=== PATIENT | female | born 1945 | race Caucasian/White ===

== ENCOUNTER 2022-06-20 10:54 | Emergency (ER) | payer MEDICARE ==
[~2022-06-20] VITALS: Ht 149 cm; Wt 75.0 kg
[2022-06-20 11:22] LABS: BASOPHILS # (AUTO) 0.1 10^3/uL (0.0-0.1); BASOPHILS % (AUTO) 1 % (0-10); EOSINOPHILS # (AUTO) 0.7 10^3/uL (0.0-0.3); EOSINOPHILS % (AUTO) 12 % (0-10); HEMATOCRIT 39 % (35-52); HEMOGLOBIN 13.1 g/dL (11.5-16.0); LYMPHOCYTES # (AUTO) 1.5 10^3/uL (1.0-4.0); LYMPHOCYTES % (AUTO) 24 % (12-44); MEAN CORPUSCULAR HEMOGLOBIN 32 pg (25-34); MEAN CORPUSCULAR HGB CONC 34 g/dL (32-36); MEAN CORPUSCULAR VOLUME 94 fL (80-99); MONOCYTES # (AUTO) 0.4 10^3/uL (0.0-1.0); MONOCYTES % (AUTO) 6 % (0-12); NEUTROPHILS # (AUTO) 3.5 10^3/uL (1.8-7.8); NEUTROPHILS % (AUTO) 57 % (42-75); PLATELET COUNT 107 10^3/uL (130-400); WHITE BLOOD COUNT 6.2 10^3/uL (4.3-11.0)
[2022-06-20 11:27] LABS: ALBUMIN 3.3 GM/DL (3.2-4.5); POTASSIUM 4.9 MMOL/L (3.6-5.0)
[2022-06-20 11:28] LABS: CALCIUM 8.9 MG/DL (8.5-10.1)
[2022-06-20 11:31] LABS: BILIRUBIN,TOTAL 1.1 MG/DL (0.1-1.0); FIBRIN DEGRADATION PRODUCTS 1.48 UG/ML (0.00-0.49); PROTHROMBIN TIME PATIENT 13.8 SEC (12.2-14.7)
[2022-06-20 11:33] LABS: CREATININE SERUM 1.46 MG/DL (0.60-1.30)
[2022-06-20] MEDS ORDERED: RT-ALBUTEROL HFA 8.5 GM INHALER IH ONE (11:33)
--- NOTE | 2022-06-20 11:43 | Diagnostic Imaging Report ---
PROCEDURE: CT maxillofacial without contrast. TECHNIQUE: Multiple contiguous axial images were obtained through the facial bones without the use of intravenous contrast. Auto Exposure Controls were utilized during the CT exam to meet ALARA standards for radiation dose reduction. INDICATION: Fall. Facial pain. Possible stroke. COMPARISON: None. FINDINGS: No acute fracture or dislocation is seen in the face. The mandible, zygomatic arches, and pterygoid plates are intact. The bilateral TMJs demonstrate normal alignment. No nasal bone fractures. There is leftward deviation of the nasal septum. No orbital rim fracture is seen. The paranasal sinuses are clear. No post septal inflammatory changes are seen. The globes are intact bilaterally. Bilateral lens implants are noted. The included intracranial contents demonstrate no acute abnormalities. The included upper cervical spine is unremarkable. The craniocervical junction is intact. IMPRESSION: No acute facial fractures. Dictated by: Dictated on workstation # [id number]
--- NOTE | 2022-06-20 11:43 | Diagnostic Imaging Report ---
PROCEDURE: CT head wo r/o stroke. TECHNIQUE: Multiple contiguous axial images were obtained through the brain without the use of intravenous contrast. Auto Exposure Controls were utilized during the CT exam to meet ALARA standards for radiation dose reduction. INDICATION: Neuro deficit. COMPARISON: Imaging from the same date. FINDINGS: Moderate atrophy. No intracranial hemorrhage. Focal hypodensity is identified involving the posterior left parietotemporal lobes. This involves the overlying cortex. Additional periventricular and subcortical white matter hypodensities are present, most consistent with mild background chronic small vessel white matter ischemic disease. No additional CT evidence of an acute ischemic infarction. No midline shift, herniation, hydrocephalus, or suspicious extra-axial fluid collection. The bilateral ocular lenses are absent. Mild background vascular calcifications. The paranasal sinuses are clear. The calvarium and extracalvarial soft tissues are unremarkable. IMPRESSION: Age-indeterminate infarction involving the posterior aspect of the left parietotemporal lobes. Recommend clinical correlation. If further evaluation is desired, then MRI of the brain would be recommended. Moderate atrophy with associated mild background chronic small vessel white matter ischemic disease. Dictated by: Dictated on workstation # [id number]
--- NOTE | 2022-06-20 11:44 | Diagnostic Imaging Report ---
INDICATION: Shortness of air. COMPARISON: None available. TECHNIQUE: Single radiograph of the chest dated 06/20/2022. FINDINGS: The cardiac silhouette is borderline enlarged. Central pulmonary vascular congestion is present. The lungs are clear. No pleural effusion. No pneumothorax. No acute osseous abnormality. IMPRESSION: Borderline cardiomegaly with central pulmonary vascular congestion without interstitial edema or pleural effusion. Dictated by: Dictated on workstation # [id number]
[2022-06-20] MEDS ORDERED: RT-ALBUTEROL HFA 8.5 GM INHALER IH STA (11:50)
[2022-06-20] MEDS ORDERED: NS IV 1000 ML 1,000 ML IV SCH (12:00)
[2022-06-20] MEDS ORDERED: HOLD METFORMIN - RECEIVED CONTRAST 20 ML VIAL IV SCH (12:30)
[2022-06-20] MEDS ORDERED: NS 100 ML (IVPB) BAG IV ONE (12:30)
[2022-06-20] MEDS ORDERED: IOHEXOL 350 MG/ML 100 ML (OMNIPAQUE 350) VIAL IV ONE (12:30)
[2022-06-20 12:32] LABS: ABG BASE EXCESS -0.7 MMOL/L (-2.5-2.5); ABG OXYGEN SATURATION 94 % (94-100); ABG PCO2 45 MMHG (35-45); ABG PH 7.35 (7.37-7.43); ABG PO2 65 MMHG (79-93); ABG TCO2 25.8 MMOL/L (21.0-31.0); ALLENS TEST YES-POS; INSPIRED O2 ROOM AIR; VENTILATOR NO
[2022-06-20 13:23] LABS: BILIRUBIN,URINE NEGATIVE (NEGATIVE); CLARITY,URINE CLEAR; COLOR,URINE YELLOW; GLUCOSE, URINE (UA) NEGATIVE (NEGATIVE); KETONES,URINE NEGATIVE (NEGATIVE); LEUKOCYTE ESTERASE ,URINE NEGATIVE (NEGATIVE); NITRITE,URINE NEGATIVE (NEGATIVE); PH,URINE 5.5 (5-9); PROTEIN,URINE NEGATIVE (NEGATIVE)
--- NOTE | 2022-06-20 13:28 | Diagnostic Imaging Report ---
PROCEDURE: CT angiography of the head and CT angiography of the neck with and without contrast. TECHNIQUE: Contiguous noncontrast images were obtained from the skull base through the vertex. After intravenous contrast administration, helical CT angiography of the neck was performed. Source data was reformatted into 3D MIP projections. Delayed post contrast acquisition was also obtained. Auto Exposure Controls were utilized during the CT exam to meet ALARA standards for radiation dose reduction. INDICATION: Concern for stroke. Focal neurologic deficit. Fall. COMPARISON: CT head performed this same date. FINDINGS: CTA NECK: The visualized portions of the aortic arch demonstrate atherosclerotic plaque without evidence of aneurysm or dissection. There is conventional branching pattern of the great vessels of the aorta. The brachiocephalic artery is normal in course and caliber. The right and left common carotid origins are unremarkable. The origin of the left subclavian artery is patent. The common carotid arteries and internal carotid arteries demonstrate a tortuous course. There is calcified atherosclerotic plaque in the bilateral carotid bulbs and proximal internal carotid arteries. There is 70-80% stenosis in the proximal right internal carotid artery based on NASCET criteria. Less than 50% stenosis is seen in the proximal left ICA. No evidence of dissection in the carotid systems. The external carotid arteries are patent and unremarkable. The right vertebral artery is dominant. The origin of the right vertebral artery is seen and is unremarkable. The origin of the left vertebral artery is off the aortic arch. There is no focal stenosis seen within the neck. There is no dissection. The vertebral arteries are well visualized to up to the level of the basilar artery. The osseous structures of the cervical spine are unremarkable. Included views through the lung apices demonstrate no focal consolidation. CTA BRAIN: Atherosclerotic plaque is seen in the [place] of the bilateral terminal internal carotid arteries without significant stenosis. No stenosis is seen in the bilateral anterior, middle, and posterior cerebral arteries. The right A1 segment is hypoplastic. No evidence of aneurysm the [place]. In the posterior circulation, both of the vertebral arteries demonstrate normal opacification. Both the right and left PICA arteries are identified. The basilar artery is normal in course and caliber. The terminal branch vessels including the superior cerebellar arteries unremarkable. IMPRESSION: 1. No stenosis or aneurysm in the [place]. No evidence of large vessel occlusion. 2. 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 3. No significant stenosis in the bilateral common carotid arteries, left internal carotid artery, and vertebral arteries. Dictated by: Dictated on workstation # [id number]
[2022-06-20 13:43] LABS: BACTERIA,URINE NEGATIVE /HPF
[2022-06-20] MEDS ORDERED: RT-ALBUTEROL/IPRATROPIUM 3 ML (DUONEB) VIAL INH ONE (14:45)
[2022-06-20] MEDS ORDERED: RT-BUDESONIDE NEBS 0.5 MG/2ML (PULMICORT) AMP INH STA (15:54)
[2022-06-20] MEDS ORDERED: methylPREDNISolone 125 MG (Solu-MEDROL) VIAL IVP ONE (16:00)
--- NOTE | 2022-06-20 16:17 | ED Neurological Problem ---
General Chief Complaint: Neuro-Stroke Like Symptoms Stated Complaint: POSSIBLE STROKE Nursing Triage Note: PT TO RM 2 PER W/C FAMILY STATES PT HAS SLURRED SPEECH, HAD FALLEN THIS AM AT 0430. PT HAS BRUISE ON L SIDE CHIN FROM FALL. PT HAS GENERALIZED WEAKNESS. PT HAS HAD PREVIOUS STROKE. DAUGHTER STATES FELL ASLEEP WHEN WATCHING PARADE. Source: patient, family Exam Limitations: no limitations History of Present Illness Date Seen by Provider: Jun 20, 2022 Time Seen by Provider: 11:02 Initial Comments This is 77-year-old woman presents to the emergency room accompanied by family with primary complaint of slurred speech. She appears to be dysarthric without aphasia. She also reports a fall at 0430 while getting up to go to the bathroom. No one was with her to observe her speech at that time, so the last known well time in regard to her dysarthria would be 2200 when she went to bed. When she fell she struck her face and has a bruise on the left jawline and bruising around the left eye. She denies any head pain or neck pain. Neck is nontender to palpation. She does not take any blood thinning medications except a aspirin 81 mg daily. 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 She apparently had a full recovery. Stroke activation was paged. Initial NIH was 3. She received 2 points for ataxia of the upper extremities and one-point for dysarthria. Patient is also noted to be wheezing. She has COPD and uses nebulizer treatments multiple times per day. She is in town visiting for a football game. She is from [place]. Allergies and Home Medications Allergies Coded Allergies: Penicillins (Verified Allergy, Unknown, 06/20/22) sulfamethoxazole (Verified Allergy, Unknown, 06/20/22) trimethoprim (Verified Allergy, Unknown, 06/20/22) Patient Home Medication List Home Medication List Reviewed: Yes Review of Systems Review of Systems Constitutional: no symptoms reported Eyes: No Symptoms Reported Ears, Nose, Mouth, Throat: no symptoms reported Respiratory: see HPI Cardiovascular: no symptoms reported Gastrointestinal: no symptoms reported Genitourinary: no symptoms reported : No Musculoskeletal: no symptoms reported Skin: no symptoms reported Psychiatric/Neurological: See HPI Endocrine: No Symptoms Reported Past Hngoxnn-Qhwarg-Ynxvce Hx Patient Social History Tobacco Use?: Yes Tobacco type used: Cigarettes Smoking Status: Current Someday Smoker Substance use?: No Alcohol Use?: Yes Alcohol type: Beer Alcohol Frequency: Rarely Pt feels they are or have been: No Immunizations Up To Date First/Initial COVID19 Vaccinat: 2020 Second COVID19 Vaccination Sridhar: 2020 COVID19 Vaccine Insurance Office Supervisor: DOESN'T RECALL Past Medical History Surgery/Hospitalization HX: COPD, X2, HX PREVIOUS STROKE, ARTHRITIS, HTN Surgeries: Yes Section, Tubal Ligation Respiratory: Yes COPD (Occasionally uses oxygen at night) Cardiac: Yes Hypertension Neurological: Yes Stroke : No Reproductive Disorders: No Genitourinary: No Gastrointestinal: No Musculoskeletal: No Endocrine: No HEENT: No Cancer: No Psychosocial: No Integumentary: No Physical Exam Vital Signs Vital Signs - First Documented 06/20/22 06/20/22 10:56 14:40 Temp 36.0 Pulse 67 Resp 18 B/P (MAP) 119/76 (90) Pulse Ox 94 O2 Delivery Nasal Cannula O2 Flow Rate 1.00 Capillary Refill : Less Than 3 Seconds Height, Weight, BMI Height: '" Weight: lbs. oz. kg; 33.00 BMI Method: General Appearance: WD/WN, no apparent distress HEENT: PERRL/EOMI, normal ENT inspection, other (Mucous membranes moist) Neck: normal inspection; No carotid bruit Respiratory: no respiratory distress, no accessory muscle use, wheezing Cardiovascular: regular rate, rhythm, no edema, no murmur Gastrointestinal: normal bowel sounds, non tender, soft Extremities: normal inspection, no pedal edema Neurologic/Psychiatric: alert, normal mood/affect, oriented x 3, abnormal manager process improvement II-XII (Mild dysarthria), facial droop (Questionable very subtle right droop of the mouth), motor weakness (Mild generalized weakness. Slight ataxia of the upper extremities bilaterally.) Coordination/Gait: ABN nose to finger (R) (Slight ataxia), ABN nose to finger (L) (Slight ataxia) Skin: normal color, warm/dry Stroke NIH Stroke Scale Assessment Level of Consciousness: 0=Alert (0), Level of Consciousness-Questions: 0=Answers both month/age (0), LOC Commands: 0=Performs both tasks (0), Visual [place]: 0=No visual loss (0), Facial Movement (Facial Paresis): 0=Normal symmetrical mnt (0), Motor Function-Arms Right: 0=No drift (0), Motor Fu nction-Arms Left: 0=No drift (0), Motor Function-Legs Right: 0=No drift (0), Limb Ataxia: 2=Present in two limbs (2), Sensory: 0=Normal:no loss (0), Best Language: 0=No aphasia (0), Dysarthria: 1=Mild to moderate loss (1), Extinction & Inattention: 0=No abnormality (0), Total: 3 Progress/Results/Core Measures Results/Orders Lab Results Laboratory Tests Test 06/20/22 11:07 06/20/22 11:08 06/20/22 11:35 06/20/22 12:20 Range/Units Glucometer 140 H 70-110 MG/DL White Blood Count 6.2 4.3-11.0 10^3/uL Red Blood Count 4.13 3.80-5.11 10^6/uL Hemoglobin 13.1 11.5-16.0 g/dL Hematocrit 39 35-52 % Mean Corpuscular Volume 94 80-99 fL Mean Corpuscular Hemoglobin 32 25-34 pg Mean Corpuscular Hemoglobin Concent 34 32-36 g/dL Red Cell Distribution Width 13.8 10.0-14.5 % Platelet Count 107 L 130-400 10^3/uL Mean Platelet Volume 11.0 9.0-12.2 fL Immature Granulocyte % (Auto) 0 % Neutrophils (%) (Auto) 57 42-75 % Lymphocytes (%) (Auto) 24 12-44 % Monocytes (%) (Auto) 6 0-12 % Eosinophils (%) (Auto) 12 H 0-10 % Basophils (%) (Auto) 1 0-10 % Neutrophils # (Auto) 3.5 1.8-7.8 10^3/uL Lymphocytes # (Auto) 1.5 1.0-4.0 10^3/uL Monocytes # (Auto) 0.4 0.0-1.0 10^3/uL Eosinophils # (Auto) 0.7 H 0.0-0.3 10^3/uL Basophils # (Auto) 0.1 0.0-0.1 10^3/uL Immature Granulocyte # (Auto) 0.0 0.0-0.1 10^3/uL Prothrombin Time 13.8 12.2-14.7 SEC INR Comment 1.0 0.8-1.4 Activated Partial Thromboplast Time 39 H 24-35 SEC D-Dimer 1.48 H 0.00-0.49 UG/ML Sodium Level 138 135-145 MMOL/L Potassium Level 4.9 3.6-5.0 MMOL/L Chloride Level 104 98-107 MMOL/L Carbon Dioxide Level 22 21-32 MMOL/L Anion Gap 12 5-14 MMOL/L Blood Urea Nitrogen 22 H 7-18 MG/DL Creatinine 1.46 H 0.60-1.30 MG/DL Estimat Glomerular Filtration Rate 37 BUN/Creatinine Ratio 15 Glucose Level 129 H 70-105 MG/DL Calcium Level 8.9 8.5-10.1 MG/DL Corrected Calcium 9.5 8.5-10.1 MG/DL Total Bilirubin 1.1 H 0.1-1.0 MG/DL Aspartate Amino Transf (AST/SGOT) 42 H 5-34 U/L Alanine Aminotransferase (ALT/SGPT) 27 0-55 U/L Alkaline Phosphatase 184 H 40-136 U/L Troponin I 0.028 <0.028 NG/ML Total Protein 7.0 6.4-8.2 GM/DL Albumin 3.3 3.2-4.5 GM/DL Influenza Type A (RT-PCR) Not Detected Not Detecte Influenza Type B (RT-PCR) Not Detected Not Detecte SARS-CoV-2 RNA (RT-PCR) Not Detected Not Detecte Blood Gas Puncture Site R RAD Blood Gas Patient Temperature 36.0 Arterial Blood pH 7.35 L 7.37-7.43 Arterial Blood Partial Pressure CO2 45 35-45 MMHG Arterial Blood Partial Pressure O2 65 L 79-93 MMHG Arterial Blood HCO3 24 23-27 MMOL/L Arterial Blood Total CO2 25.8 21.0-31.0 MMOL/L Arterial Blood Oxygen Saturation 94 94-100 % Arterial Blood Base Excess -0.7 -2.5-2.5 MMOL/L Fortino Test YES-POS Blood Gas Ventilator Setting NO Blood Gas Inspired Oxygen ROOM AIR Test 06/20/22 13:10 Range/Units Urine Color YELLOW Urine Clarity CLEAR Urine pH 5.5 5-9 Urine Specific [place] <=1.005 1.016-1.022 Urine Protein NEGATIVE NEGATIVE Urine Glucose (UA) NEGATIVE NEGATIVE Urine Ketones NEGATIVE NEGATIVE Urine Nitrite NEGATIVE NEGATIVE Urine Bilirubin NEGATIVE NEGATIVE Urine Urobilinogen 0.2 < = 1.0 MG/DL Urine Leukocyte Esterase NEGATIVE NEGATIVE Urine RBC (Auto) NEGATIVE NEGATIVE Urine RBC NONE /HPF Urine WBC NONE /HPF Urine Squamous Epithelial Cells NONE /HPF Urine Crystals NONE /LPF Urine Bacteria NEGATIVE /HPF Urine Casts NONE /LPF Urine Mucus NEGATIVE /LPF Urine Culture Indicated NO My Orders Orders - DAMIAN ROSE MD Cbc With Automated Diff (06/20/22 11:15) Protime With Inr (06/20/22 11:15) Partial Thromboplastin Time (06/20/22 11:15) Comprehensive Metabolic Panel (06/20/22 11:15) Fibrin Degradation Products (06/20/22 11:15) Troponin I [place] (06/20/22 11:15) Ua Culture If Indicated (06/20/22 11:15) Chest 1 View, Ap/Pa Only (06/20/22 11:15) Ekg Tracing (06/20/22 11:15) Nothing By Mouth (06/20/22 Lunch) Accucheck Stat ONCE (06/20/22 11:15) Ed Iv/Invasive Line Start (06/20/22 11:15) Ed Iv/Invasive Line Start (06/20/22 11:15) Vital Signs Stroke Patient Q15M (06/20/22 11:15) Ct Head Wo-R/O Stroke (06/20/22 11:15) O2 (06/20/22 11:15) Intake & Output 06,14,22 (06/20/22 11:15) Monitor-Rhythm Ecg Trace Only (06/20/22 11:15) Dysphagia Screening Tool Q10MX1 (06/20/22 11:15) Ct Maxillofacial Wo (06/20/22 11:16) Albuterol Inhaler (Albuterol) (06/20/22 11:33) Ns Iv 1000 Ml (Sodium Chloride 0.9%) (06/20/22 12:00) Albuterol Inhaler (Albuterol) (06/20/22 11:50) Covid 19 Inhouse Test (06/20/22 11:50) Influenza A And B By Pcr (06/20/22 11:50) Ct Angio Head/Neck (06/20/22 12:19) Arterial Blood Gas (06/20/22 12:23) Iohexol Injection (Omnipaque 350 Mg/Ml 1 (06/20/22 12:30) Received Contrast (Hold Metformin- Contr (06/20/22 12:30) Ns (Ivpb) (Sodium Chloride 0.9% Ivpb Bag (06/20/22 12:30) Albuterol/Ipra Inhalation Soln (Duoneb I (06/20/22 14:45) Svn Small Volume Nebulizer (06/20/22 14:35) Budesonide Inhalation Solution (Pulmicor (06/20/22 15:54) Svn Small Volume Nebulizer (06/20/22 15:54) Methylprednisolone Sod Succ (Solu-Medrol (06/20/22 16:00) Aspirin Tablet (Aspirin Tablet) (06/20/22 16:45) Nicotine Patch (Nicoderm Patch) (06/20/22 16:53) Medications Given in ED Vital Signs/I&O 06/20/22 06/20/22 06/20/22 06/20/22 10:56 14:40 14:56 18:26 Temp 36.0 Pulse 67 68 Resp 18 16 B/P (MAP) 119/76 (90) 109/53 Pulse Ox 94 97 98 96 O2 Delivery Nasal Cannula Nasal Cannula O2 Flow Rate 1.00 1.00 Blood Pressure Mean: 90 FSBG Bedside Testing Finger Stick Blood Glucose: 140 Blood Glucose Action Taken: REPORTED TO DR Schwab Progress Note : Time: 17:50 Progress Note Stroke activation was paged. NIH score was 3. Patient had mild ataxia of the upper extremities bilaterally and dysarthria resulting in 3 points on the NIH score. CT scan revealed CVA of unknown chronicity on the left. It is unclear if this is related to her prior CVA or is new. Patient was passed through the treatment window for thrombolytics. CT was followed by CT angiogram which showed a 70 to 80% stenosis of the right ICA. This did not seem to correlate with symptoms or with location of stroke seen on CT. I discussed the case with Dr. Chapman, stroke neurologist at [facility]. He recommended further evaluation with MRI and admission. MRIs not available at this facility for another 48 hours and neurology consultation is not available here. I discussed the situation with the patient and family. They request transfer for these services which I believe is most appropriate as well. The [facility] were not able to accommodate as the [place] system was on diversion and closed to transfer. [facility] did not have neurology consults available and at [facility] in [place] was closed to transfers for bed capacity. The [facility] transfer line was contacted and patient was excepted for transfer to [facility]. At 16:[address] Pro, neurologist on-call who agreed with need for MRI and further evaluation. I later spoke with Dr. Walls who accepted transfer on behalf of the receiving physician, Dr. Peter, at 16:36. Patient remained stable. She received a liter of IV fluid. She received an albuterol inhaler treatment initially followed by DuoNeb treatment later for persistent wheezing. She also had not had her budesonide nebulizer treatments today. Budesonide treatment was administered, and she additionally received Solu-Medrol 62.5 mg by IV route. Initial ECG Impression Date: Jun 20, 2022 Initial ECG Impression Time: 11:35 Initial ECG Rate: 65 Initial ECG Rhythm: Normal Sinus Initial ECG Intervals: Normal Initial ECG Impression: Normal Comment Normal sinus rhythm with no ST elevation or depression. No abnormal intervals or axis deviation. Diagnostic Imaging Diagonstic Imaging: CT Plain Films/CT/US/NM/MRI: head Comments CT head viewed by me and report reviewed. See report below: NAME: SANTI AARON MED REC#: [id number] PT STATUS: REG ER : 1945 PHYSICIAN: DAMIAN ROSE MD ADMIT DATE: 06/20/22/ER Signed Date of Exam:06/20/22 CT HEAD WO-R/O STROKE PROCEDURE: CT head wo r/o stroke. TECHNIQUE: Multiple contiguous axial images were obtained through the brain without the use of intravenous contrast. Auto Exposure Controls were utilized during the CT exam to meet ALARA standards for radiation dose reduction. INDICATION: Neuro deficit. COMPARISON: Imaging from the same date. FINDINGS: Moderate atrophy. No intracranial hemorrhage. Focal hypodensity is identified involving the posterior left parietotemporal lobes. This involves the overlying cortex. Additional periventricular and subcortical white matter hypodensities are present, most consistent with mild background chronic small vessel white matter ischemic disease. No additional CT evidence of an acute ischemic infarction. No midline shift, herniation, hydrocephalus, or suspicious extra-axial fluid collection. The bilateral ocular lenses are absent. Mild background vascular calcifications. The paranasal sinuses are clear. The calvarium and extracalvarial soft tissues are unremarkable. IMPRESSION: Age-indeterminate infarction involving the posterior aspect of the left parietotemporal lobes. Recommend clinical correlation. If further evaluation is desired, then MRI of the brain would be recommended. Moderate atrophy with associated mild background chronic small vessel white matter ischemic disease. Dictated by: Dictated on workstation # [id number] Dict: 06/20/22 1123 Trans: 06/20/22 1225 [id number] Interpreted by: SHANAE SELLERS MD Electronically signed by: SHANAE SELLERS MD 06/20/22 1225 Diagonstic Imaging: CT Plain Films/CT/US/NM/MRI: other (Angiogram head and neck) Comments CT angiogram head and neck viewed by me and report reviewed. See report below: NAME: SANTI AARON [facility] REC#: [id number] PT STATUS: REG ER : 1945 PHYSICIAN: DAMIAN ROSE MD ADMIT DATE: 06/20/22/ER Signed Date of Exam:06/20/22 CT ANGIO HEAD/NECK PROCEDURE: CT angiography of the head and CT angiography of the neck with and without contrast. TECHNIQUE: Contiguous noncontrast images were obtained from the skull base through the vertex. After intravenous contrast administration, helical CT angiography of the neck was performed. Source data was reformatted into 3D MIP projections. Delayed post contrast acquisition was also obtained. Auto Exposure Controls were utilized during the CT exam to meet ALARA standards for radiation dose reduction. INDICATION: Concern for stroke. Focal neurologic deficit. Fall. COMPARISON: CT head performed this same date. FINDINGS: CTA NECK: The visualized portions of the aortic arch demonstrate atherosclerotic plaque without evidence of aneurysm or dissection. There is conventional branching pattern of the great vessels of the aorta. The brachiocephalic artery is normal in course and caliber. The right and left common carotid origins are unremarkable. The origin of the left subclavian artery is patent. The common carotid arteries and internal carotid arteries demonstrate a tortuous course. There is calcified atherosclerotic plaque in the bilateral carotid bulbs and proximal internal carotid arteries. There is 70-80% stenosis in the proximal right internal carotid artery based on NASCET criteria. Less than 50% stenosis is seen in the proximal left ICA. No evidence of dissection in the carotid systems. The external carotid arteries are patent and unremarkable. The right vertebral artery is dominant. The origin of the right vertebral artery is seen and is unremarkable. The origin of the left vertebral artery is off the aortic arch. There is no focal stenosis seen within the neck. There is no dissection. The vertebral arteries are well visualized to up to the level of the basilar artery. The osseous structures of the cervical spine are unremarkable. Included views through the lung apices demonstrate no focal consolidation. CTA BRAIN: Atherosclerotic plaque is seen in the tiwari of the bilateral terminal internal carotid arteries without significant stenosis. No stenosis is seen in the bilateral anterior, middle, and posterior cerebral arteries. The right A1 segment is hypoplastic. No evidence of aneurysm the [place]. In the posterior circulation, both of the vertebral arteries demonstrate normal opacification. Both the right and left PICA arteries are identified. The basilar artery is normal in course and caliber. The terminal branch vessels including the superior cerebellar arteries unremarkable. IMPRESSION: 1. No stenosis or aneurysm in the [place]. No evidence of large vessel occlusion. 2. 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 3. No significant stenosis in the bilateral common carotid arteries, left internal carotid artery, and vertebral arteries. Dictated by: Dictated on workstation # [id number] Dict: 06/20/22 1304 Trans: 06/20/22 1327 [id number] Interpreted by: RAMILA LINN DO Electronically signed by: RAMILA LINN DO 06/20/22 1327 Diagonstic Imaging: CT Plain Films/CT/US/NM/MRI: facial bones Comments CT maxillofacial bones report reviewed. See report below: NAME: SANTI AARON [facility] REC#: [id number] PT STATUS: REG ER : 1945 PHYSICIAN: DAMIAN ROSE MD ADMIT DATE: 06/20/22/ER Signed Date of Exam:06/20/22 CT MAXILLOFACIAL WO PROCEDURE: CT maxillofacial without contrast. TECHNIQUE: Multiple contiguous axial images were obtained through the facial bones without the use of intravenous contrast. Auto Exposure Controls were utilized during the CT exam to meet ALARA standards for radiation dose reduction. INDICATION: Fall. Facial pain. Possible stroke. COMPARISON: None. FINDINGS: No acute fracture or dislocation is seen in the face. The mandible, zygomatic arches, and pterygoid plates are intact. The bilateral TMJs demonstrate normal alignment. No nasal bone fractures. There is leftward deviation of the nasal septum. No orbital rim fracture is seen. The paranasal sinuses are clear. No post septal inflammatory changes are seen. The globes are intact bilaterally. Bilateral lens implants are noted. The included intracranial contents demonstrate no acute abnormalities. The included upper cervical spine is unremarkable. The craniocervical junction is intact. IMPRESSION: No acute facial fractures. Dictated by: Dictated on workstation # [id number] Dict: 06/20/22 1130 Trans: 06/20/22 1153 APRIL [id number] Interpreted by: RAMILA LINN DO Electronically signed by: RAMILA LINN DO 06/20/22 1153 Diagonstic Imaging: Xray Plain Films/CT/US/NM/MRI: chest Comments NAME: SANTI AARON MED REC#: [id number] PT STATUS: REG ER : 1945 PHYSICIAN: DAMIAN ROSE MD ADMIT DATE: 06/20/22/ER Signed Date of Exam:06/20/22 CHEST 1 VIEW, AP/PA ONLY INDICATION: Shortness of air. COMPARISON: None available. TECHNIQUE: Single radiograph of the chest dated 06/20/2022. FINDINGS: The cardiac silhouette is borderline enlarged. Central pulmonary vascular congestion is present. The lungs are clear. No pleural effusion. No pneumothorax. No acute osseous abnormality. IMPRESSION: Borderline cardiomegaly with central pulmonary vascular congestion without interstitial edema or pleural effusion. Dictated by: Dictated on workstation # [id number] Dict: 06/20/22 1133 Trans: 06/20/22 1225 APRIL [id number] Interpreted by: SHANAE SELLERS MD Electronically signed by: SHANAE SELLERS MD 06/20/22 1225 Departure Impression Primary Impression: Dysarthria Additional Impressions: CVA (cerebral vascular accident) Qualified Codes: I63.9 - Cerebral infarction, unspecified COPD exacerbation Carotid stenosis, right Fall on same level Qualified Codes: W18.30XA - Fall on same level, unspecified, initial encounter Facial contusion Qualified Codes: S00.83XA - Contusion of other part of head, initial encounter Disposition: XFER SHT-TRM HOSP Condition: Stable Transfer Transfer Reason: Exceeds level of care Time Spoke to Accepting Phy: 16:36 Transfer Progress Notes Transfer accepted by Dr. Peter at [facility]. Report was given to Dr. Walls, PGY3. Transfer Time: 18:51 Transfer Facility: [facility] Method of Transfer: EMS DAMIAN ROSE MD Jun 20, 2022 16:16
[2022-06-20] MEDS: ASPIRIN 325 MG (5 GR) TABLET PO ONE ×2 (16:43→16:52)
[2022-06-20] MEDS ORDERED: NICOTINE 21 MG (NICODERM) PATCH TD STA (16:53)
[2022-06-20 18:26] VITALS: BP 109/53
== END 2022-06-20 18:51 | disposition short-term general hospital (02) ==
LOC: ER 10:57
DX: S00.83XA Contusion of other part of head, initial encounter (principal); I63.9 Cerebral infarction, unspecified; J44.1 Chronic obstructive pulmonary disease with (acute) exacerbation; I65.21 Occlusion and stenosis of right carotid artery; F17.210 Nicotine dependence, cigarettes, uncomplicated; Z20.822 Contact with and (suspected) exposure to COVID-19; W01.0XXA Fall on same level from slipping, tripping and stumbling without subsequent striking against object, initial encounter
CPT/HCPCS: 36415; 70450; 70486; 70496; 70498; 71045; 80053; 81000; 82805; 82947; 84484; 85025; 85379; 85610; 85730; 87636; 93005; 93041; 94640